=== PATIENT | female | born 1975 | race Caucasian/White ===

== ENCOUNTER → 2023-08-15 | Outpatient (CLI) | payer BC ==
[~2023-08-15] MED LIST: ANUSOL HC CREAM30 GM TP; COLACE 100100 MG/CAP PO; IBU600 MG PO; NORMODYNE200 MG PO; PERCOCET 325 MG1 TA2 PO; PRENATAL1 TA1 PO; VITAMIN B-625 MG PO
== END ==
LOC: MC.RAD 09:03
DX: Z12.31 Encounter for screening mammogram for malignant neoplasm of breast (principal); N63.10 Unspecified lump in the right breast, unspecified quadrant

== ENCOUNTER → 2024-09-03 | Outpatient (CLI) | payer OTHER | LOC: MC.RAD 09:29 | DX: Z12.31 Encounter for screening mammogram for malignant neoplasm of breast (principal) ==